=== PATIENT | female | born 1980 | race Caucasian/White ===

== ENCOUNTER 2016-11-16 04:09 | Emergency (ER) | payer SELFPAY ==
[2016-11-16 04:19] VITALS: BP 121/89; BMI 47.1
--- NOTE | 2016-11-16 04:28 | DR.GENAD ---
HPI - PCP Primary Care Physician: ENZO HOLT SECURITY AND [employer]IVACY CONSULTANT - Complaint/Symptoms Chief Complaint Doctors Comments: Patient admits to body aches, headache, nausea for one day. Chief Complaint:: SORE THOAT, SOB, BODY ACHES Self Treatment fo Chief Complaint: TYLENOL; ALEVE - Source History Provided: Patient - Mode of Arrival Mode of Arrival: Ambulatory - Timing Onset of Chief Complaint: 11/12/16 PMH - PMH Past Medical History: Yes Past Medical History: Anxiety, Depression, Diabetes Past Surgical History: Yes Surgical History: - Family History History of Family Medical Conditions: No Family Medical History: Diabetes Mellitus, Cancer, Hypertension - Social History Does patient currently use any type of tobacco product: No Have you used tobacco products in the last 12 months: No Type of Tobacco Use: None Alcohol Use: None Do you use any recreational Drugs:: No Lives With: Alone Lives Where: Home - infectious screening In the last 2 months have you had wt loss of >10#?: NO Have you had fever, night sweats or hemotysis?: No Have you traveled outside the country in the last 6 months?: No Isolation: Standard ROS - Review of Systems Eyes: No Symptoms Reported ENTM: No Symptoms Reported Respiratoy: No Symptoms Reported Cardiovascular: No Symptoms Reported Gastrointestinal/Abdominal: No Symptoms Reported Genitourinary: No Symptoms Reported Neurological: Headache Musculoskeletal: Other (myalgia) Integumentary: No Symptoms Reported Hematologic/Lymphatic: No Symptoms Reported Endocrine: No Symptoms Reported Psychiatric: No Symptoms Reported All Other Systems: Reviewed and Negative PE - Vital Signs Vitals: Temperature 98.6 F Pulse Rate 123 Respiratory Rate 24 Blood Pressure 121/89 O2 Sat by Pulse Oximetry 96 - General Limitations: No Limitations General Appearance: Alert, In No Apparent Distress - Head Head Exam: Normal Inspection, Atraumatic - Eyes Eye exam: Normal Appearance, PERRL, EOMI - ENT ENT Exam: Normal Exam External Ear Exam: Normal External Inspection TM/Canal Exam: Bilateral Normal Nose Exam: Normal Nose Exam Mouth Exam: Normal Inspection Throat Exam: Normal Inspection - Neck Neck Exam: Normal Inspection - Chest Chest Inspection: Normal Inspection - Respiratory Respiratory Exam: Normal Lung Sounds Bilat Respiratory Exam: Bilateral Clear to Auscultation - Cardiovascular Cardiovascular Exam: Regular Rate, Normal Rhythm - Abdominal Exam Abdominal Exam: Normal Inspection, Normal Bowel Sounds Abdominal Tenderness: negative: RUQ, RLQ, LUQ, LLQ, Epigastrium, Suprapubic, Diffuse, Mild, Moderate, Severe, Other - Extremities Extremities Exam: Normal Inspection - Back Back Exam: Normal Inspection, Full ROM - Neurologic Neurological Exam: Alert, Oriented X3, CN II-XII Intact - Psychiatric Psychiatric Exam: Normal Affect, Normal Mood - Skin Skin Exam: Warm, Dry, Intact Course - Treatment Treatment: Bicillin,Toradol, NS - Reevaluation 1st: Improved ROR - Labs Reviewed Result Diagrams: 11/16/16 05:15 11/16/16 05:15 Laboratory: WBC 19.5 X10^3/uL (3.6-10.0) H 11/16/16 05:15 RBC 5.22 X10^6/uL (3.5-5.4) 11/16/16 05:15 Hgb 15.5 g/dL (12.0-16.0) 11/16/16 05:15 Hct 45.3 % (36.0-47.0) 11/16/16 05:15 MCV 86.8 fL (80.0-100.0) 11/16/16 05:15 MCH 29.8 pg (27.0-34.0) 11/16/16 05:15 MCHC 34.3 g/dL (33.0-35.0) 11/16/16 05:15 RDW 12.8 % (11.6-16.5) 11/16/16 05:15 Plt Count 393 X10^3/uL (150.0-450.0) 11/16/16 05:15 MPV 7.1 fL (7.4-11.0) L 11/16/16 05:15 Neut % 86.0 % (42.0-75.0) H 11/16/16 05:15 Lymph % 7.0 % (21.0-51.0) L 11/16/16 05:15 [place] % 4.8 % (0.0-13.0) 11/16/16 05:15 Eos % 1.5 % (0.9-2.9) 11/16/16 05:15 Baso % 0.7 % (0.2-1.0) 11/16/16 05:15 Neut # 16.8 x10^3/uL (2.2-4.8) H 11/16/16 05:15 Lymph # 1.4 X10^3/uL (1.3-2.9) 11/16/16 05:15 [place] # 0.9 x10^3/uL (0.3-0.8) H 11/16/16 05:15 Eos # 0.3 x10^3/uL (0.0-0.2) H 11/16/16 05:15 Baso # 0.1 X10^3/uL (0.0-0.1) 11/16/16 05:15 Absolute Nucleated RBC 0.0 /100WBC 11/16/16 05:15 Sodium 132 mmol/L (136-145) L 11/16/16 05:15 Corrected Sodium 137 mmol/L (136-145) 11/16/16 05:15 Potassium 4.2 mmol/L (3.5-5.1) 11/16/16 05:15 Chloride 97 mmol/L (98-107) L 11/16/16 05:15 Carbon Dioxide 26.3 mmol/L (21-32) 11/16/16 05:15 BUN 12 mg/dL (7-18) 11/16/16 05:15 Creatinine 1.04 mg/dL (0.55-1.02) H 11/16/16 05:15 Est GFR (MDRD) Af Amer > 60 (>60) 11/16/16 05:15 Est GFR (MDRD) Non-Af > 60 (>60) 11/16/16 05:15 Glucose 321 mg/dL (65-99) H 11/16/16 05:15 Calcium 9.2 mg/dL (8.5-10.1) 11/16/16 05:15 Influenza Type A (PCR) Negative (NEGATIVE) 11/16/16 04:26 Influenza Type B (PCR) Negative (NEGATIVE) 11/16/16 04:26 Streptococcus Screen Positive (NEGATIVE) A 11/16/16 04:26 - Diagnosis Discharge Problem: Strep pharyngitis, Upper respiratory disease Diabetes mellitus Qualifiers: Diabetes mellitus type: type 1 Diabetes mellitus complication status: without complication Qualified Code(s): E10.9 - Type 1 diabetes mellitus without complications - Discharge Plan Condition: Stable - Follow ups/Referrals Follow ups/Referrals: ENZO HOLT [Primary Care Provider] - 3 days - Instructions
[2016-11-16] MEDS ORDERED: NS 1000 ML 1,000 ML IV ONE (04:56)
[2016-11-16] MEDS ORDERED: NS 1000 ML 1,000 ML ONE (04:57)
[2016-11-16] MEDS ORDERED: BICILLIN L-A IM ONE ×2 (04:58→05:10)
[2016-11-16 05:26] LABS: BASOPHILS # (AUTO) 0.1 X10^3/uL (0.0-0.1); BASOPHILS % (AUTO) 0.7 % (0.2-1.0); EOSINOPHILS # (AUTO) 0.3 x10^3/uL (0.0-0.2); EOSINOPHILS % (AUTO) 1.5 % (0.9-2.9); HEMATOCRIT 45.3 % (36.0-47.0); HEMOGLOBIN 15.5 g/dL (12.0-16.0); LYMPHOCYTES # (AUTO) 1.4 X10^3/uL (1.3-2.9); MEAN CORPUSCULAR HEMOGLOBIN 29.8 pg (27.0-34.0); MEAN CORPUSCULAR HGB CONC 34.3 g/dL (33.0-35.0); MEAN CORPUSCULAR VOLUME 86.8 fL (80.0-100.0); MEAN PLATELET VOLUME 7.1 fL (7.4-11.0); MONOCYTES # (AUTO) 0.9 x10^3/uL (0.3-0.8); MONOCYTES % (AUTO) 4.8 % (0.0-13.0); NEUTROPHILS # (AUTO) 16.8 x10^3/uL (2.2-4.8); PLATELET COUNT 393 X10^3/uL (150.0-450.0); RED BLOOD COUNT 5.22 X10^6/uL (3.5-5.4); RED CELL DISTRIBUTION WIDTH 12.8 % (11.6-16.5); WHITE BLOOD COUNT 19.5 X10^3/uL (3.6-10.0)
[2016-11-16 05:31] LABS: BLOOD UREA NITROGEN 12 mg/dL (7-18); CALCIUM 9.2 mg/dL (8.5-10.1); CARBON DIOXIDE 26.3 mmol/L (21-32); CHLORIDE 97 mmol/L (98-107); COR NA(FOR HYPERGLY) 137 mmol/L (136-145); CREATININE 1.04 mg/dL (0.55-1.02); SODIUM 132 mmol/L (136-145); eGFR BLACK RACES > 60 (>60); eGFR NON BLACK RACES > 60 (>60)
[2016-11-16] MEDS ORDERED: TORADOL 30 MG VIAL IVP ONE (06:01)
[2016-11-16] MEDS ORDERED: TORADOL 30 MG VIAL ONE (06:03)
== END 2016-11-16 06:25 | disposition home or self-care (01) ==
LOC: ER 04:09
DX: J02.0 Streptococcal pharyngitis (principal); J06.9 Acute upper respiratory infection, unspecified; E10.9 Type 1 diabetes mellitus without complications
CPT/HCPCS: 36415; 80048; 85025; 87502; 87880; 96365; 96372; 96374; 99283; A4222; J0570; J1885

== ENCOUNTER 2016-12-31 21:48 | Emergency (ER) | payer SELFPAY ==
[2016-12-31 22:03] VITALS: BMI 44.3
[2016-12-31] MEDS ORDERED: NORFLEX INJ IM ONE (22:58)
[2016-12-31] MEDS ORDERED: TORADOL 60 MG VIAL IM ONE (22:58)
--- NOTE | 2016-12-31 22:58 | DR.GENAD ---
HPI - PCP Primary Care Physician: Raquel Holt - HPI Comment HPI Comment: GETTING WORSE. NO INJURY. - Complaint/Symptoms Chief Complaint Doctors Comments: LLOWER BACK PAIN TIMES 3 DAYS. N/N/D TODAY. Chief Complaint:: LOWER BACK PAIN FOR 3 DAYS AND N/V/D SINCE THIS AM. SYMTOMS GETTING WORSE. DENIES FEVER.DENIES DYSURIA. Self Treatment fo Chief Complaint: Flexeril @ 19:00, Tylenol @ 13:00, Aleve on 12/30/16 - Nurses notes reviewed Nurses Notes Review: Yes - Source History Provided: Patient - Mode of Arrival Mode of Arrival: Ambulatory - Timing Onset of Chief Complaint: 12/31/16 Came on: Suddenly - Duration Duration: Constant Duration: Days - Severity Severity: Moderate PMH - PMH Past Medical History: Yes Past Medical History: Anxiety, Depression, Diabetes Past Surgical History: Yes Surgical History: - Family History History of Family Medical Conditions: Yes Family Medical History: Diabetes Mellitus, Cancer, Hypertension - Social History Does patient currently use any type of tobacco product: No Have you used tobacco products in the last 12 months: No Alcohol Use: None Do you use any recreational Drugs:: No Lives With: Family Lives Where: Home - infectious screening Have you traveled outside the country in the last 6 months?: No ROS - Review of Systems Constitutional: Weakness, Fatigue Eyes: No Symptoms Reported. negative: Eye Pain, Discharge ENTM: No Symptoms Reported. negative: Ear Pain, Nose Discharge, Nose Congestion , Throat Pain Respiratoy: No Symptoms Reported. negative: Productive Cough, Non-Productive Cough, Short of Breath, Wheezing, Hemoptysis Cardiovascular: negative: Chest Pain, Edema, Palpitations Gastrointestinal/Abdominal: Abdominal Pain, Diarrhea, Nausea, Vomiting Genitourinary: No Symptoms Reported. negative: Dysuria, Frequency, Hematuria Neurological: Weakness. negative: Headache, Dizziness Musculoskeletal: Back Pain, Back Integumentary: No Symptoms Reported Hematologic/Lymphatic: No Symptoms Reported Endocrine: No Symptoms Reported. negative: Flushing, Increased Thirst, Increased Urine All Other Systems: Reviewed and Negative PE - Vital Signs Vitals: Temperature 97.4 F Pulse Rate [Right Radial] 104 Pulse Rate 130 Respiratory Rate 18 Blood Pressure [Left Arm] 126/67 Blood Pressure 125/81 O2 Sat by Pulse Oximetry 98 - General Limitations: No Limitations General Appearance: Alert - Head Head Exam: Normal Inspection - Eyes Eye exam: Normal Appearance - ENT ENT Exam: Normal External Ear Exam External Ear Exam: Normal External Inspection TM/Canal Exam: Bilateral Normal Nose Exam: Normal Nose Exam Mouth Exam: Normal Inspection Throat Exam: Normal Inspection - Neck Neck Exam: Trachea Midline. negative: Tenderness, Meningismus, Lymphadenopathy - Chest Chest Inspection: Symmetric Chest Wall Rise - Respiratory Respiratory Exam: Normal Lung Sounds Bilat Respiratory Exam: Bilateral Clear to Auscultation - Cardiovascular Cardiovascular Exam: Regular Rate, Normal Rhythm, Normal Heart Sounds - Abdominal Exam Abdominal Exam: Normal Bowel Sounds, Soft, Tenderness Abdominal Tenderness: Diffuse, Moderate - Extremities Extremities Exam: Normal Inspection - Back Back Exam: Paraspinal Tenderness (LOWER BACL.), Vertebral Tenderness (LOWER BACK.) - Neurologic Neurological Exam: Alert, Oriented X3, CN II-XII Intact, Normal Gait, Reflexes Normal. negative: Motor Sensory Deficit - Psychiatric Psychiatric Exam: Normal Affect, Normal Mood - Skin Skin Exam: Normal Color MDM - Additional Information Additional Information Obtained From: Family - Differential Diagnosis Differential Diagnosis: LOWER BACK PAIN, ABDOMINAL PAIN, UTI, KIDNEY STONE Course - Treatment Treatment: SEE ORDERS. IM MEDS FOR PAIN IN ED. PAIN IMPROVED. REGULAR INSULIN IN ED. GLUCOSE DECREASING. - Reevaluation 1st: Improved - Education/Counseling Education/Counseling: Patient, Family, Education Educated On: Treatment, Diagnosis, Needs for Follow Up ROR - Labs Reviewed Laboratory Results Reviewed?: Yes Result Diagrams: 12/31/16 23:08 12/31/16 23:08 Laboratory: WBC 13.6 X10^3/uL (3.6-10.0) H 12/31/16 23:08 RBC 5.26 X10^6/uL (3.5-5.4) 12/31/16 23:08 Hgb 15.8 g/dL (12.0-16.0) 12/31/16 23:08 Hct 46.3 % (36.0-47.0) 12/31/16 23:08 MCV 88.1 fL (80.0-100.0) 12/31/16 23:08 MCH 30.1 pg (27.0-34.0) 12/31/16 23:08 MCHC 34.2 g/dL (33.0-35.0) 12/31/16 23:08 RDW 13.1 % (11.6-16.5) 12/31/16 23:08 Plt Count 408 X10^3/uL (150.0-450.0) 12/31/16 23:08 MPV 7.0 fL (7.4-11.0) L 12/31/16 23:08 Neut % 74.6 % (42.0-75.0) 12/31/16 23:08 Lymph % 17.6 % (21.0-51.0) L 12/31/16 23:08 [place] % 4.0 % (0.0-13.0) 12/31/16 23:08 Eos % 3.3 % (0.9-2.9) H 12/31/16 23:08 Baso % 0.5 % (0.2-1.0) 12/31/16 23:08 Neut # 10.1 x10^3/uL (2.2-4.8) H 12/31/16 23:08 Lymph # 2.4 X10^3/uL (1.3-2.9) 12/31/16 23:08 [place] # 0.5 x10^3/uL (0.3-0.8) 12/31/16 23:08 Eos # 0.5 x10^3/uL (0.0-0.2) H 12/31/16 23:08 Baso # 0.1 X10^3/uL (0.0-0.1) 12/31/16 23:08 Absolute Nucleated RBC 0.0 /100WBC 12/31/16 23:08 Sodium 131 mmol/L (136-145) L 12/31/16 23:08 Corrected Sodium 139 mmol/L (136-145) 12/31/16 23:08 Potassium 3.8 mmol/L (3.5-5.1) 12/31/16 23:08 Chloride 96 mmol/L (98-107) L 12/31/16 23:08 Carbon Dioxide 22.2 mmol/L (21-32) 12/31/16 23:08 BUN 18 mg/dL (7-18) 12/31/16 23:08 Creatinine 1.15 mg/dL (0.55-1.02) H 12/31/16 23:08 Est GFR (MDRD) Af Amer > 60 (>60) 12/31/16 23:08 Est GFR (MDRD) Non-Af 57 (>60) L 12/31/16 23:08 Glucose 415 mg/dL (65-99) H 12/31/16 23:08 POC Glucose (mg/dL) 321 mg/dL (65-99) H 01/01/17 02:26 Calcium 8.9 mg/dL (8.5-10.1) 12/31/16 23:08 Corrected Calcium TNP 12/31/16 23:08 Total Bilirubin 0.70 mg/dL (0.2-1.0) 12/31/16 23:08 AST 32 Units/L (15-37) 12/31/16 23:08 ALT 19 Units/L (12-78) 12/31/16 23:08 Alkaline Phosphatase 129 Units/L (46-116) H 12/31/16 23:08 Total Protein 7.8 g/dL (6.4-8.2) 12/31/16 23:08 Albumin 3.4 g/dL (3.4-5.0) 12/31/16 23:08 Globulin 4.4 g/dL (2.5-4.5) 12/31/16 23:08 Albumin/Globulin Ratio 0.8 Ratio (1.1-2.1) L 12/31/16 23:08 Specimen Type Clean catch urine 12/31/16 23:29 Urine Color Yellow (YELLOW) 12/31/16: Urine Appearance Clear (CLEAR) 12/31/16 23: Urine pH 5.0 (5.0 - 8.0) 12/31/16: Ur Specific [place] 1.015 (1.000-1.030) 12/31/16 23: Urine Protein Negative (NEGATIVE) 12/31/16: Urine Glucose (UA) 4+ (NEGATIVE) 12/31/16: Urine Ketones Negative (NEGATIVE) 12/31/16: Urine Occult Blood 1+ (NEGATIVE) 12/31/16 23: Urine Nitrite Negative (NEGATIVE) 12/31/16 23: Urine Bilirubin Negative (NEGATIVE) 12/31/16: Urine Urobilinogen Normal (NORMAL) 12/31/16: Ur Leukocyte Esterase Negative (NEGATIVE) 11/20/17 23:29 Urine RBC None seen /HPF (NEGATIVE) 12/31/16 23:29 Urine WBC None seen /HPF (NEGATIVE) 12/31/16 23:29 Ur Squamous Epith Cells Rare /HPF (NEGATIVE) 12/31/16 23:29 Urine Bacteria Negative /HPF (NEGATIVE) 12/31/16 23:29 Ur Culture Indicated? No/not indicated 12/31/16 23:29 Acetone, Semi-Quant Negative (NEGATIVE) 01/01/17 23:08 - XRAY XRAY Interpreted by: Radiologist XRAY Findings: REPORT DISCUSS WITH PATIENT AND FAMILY. - Diagnosis Discharge Problem: Hyperglycemia Arm pain, musculoskeletal Qualifiers: Laterality: unspecified laterality Qualified Code(s): M79.603 - Pain in arm, unspecified Abdominal pain Qualifiers: Abdominal location: generalized Qualified Code(s): R10.84 - Generalized abdominal pain - Discharge Plan Disposition: 01 HOME, SELF-CARE Condition: Stable Prescriptions: Cyclobenzaprine HCl [FLEXERIL 10 MG *] 10 mg PO TID PRN #20 tab PRN Reason: Ibuprofen [MOTRIN TAB 600 MG *] 600 mg PO TID PRN #20 tab PRN Reason: Pain/Inflammation - Follow ups/Referrals Follow ups/Referrals: RAQUEL HOLT [Primary Care Provider] - 3 days - Instructions Instructions: Hyperglycemia, [id number], Abdominal Pain, Adult, [id number] , Back Pain, Adult, [id number] Additional Instructions: RETURN TO ED IF WORSE.
[2016-12-31] MEDS ORDERED: NORFLEX INJ ONE (23:06)
[2016-12-31] MEDS ORDERED: TORADOL 60 MG VIAL ONE (23:06)
[2016-12-31 23:17] LABS: BASOPHILS # (AUTO) 0.1 X10^3/uL (0.0-0.1); BASOPHILS % (AUTO) 0.5 % (0.2-1.0); EOSINOPHILS # (AUTO) 0.5 x10^3/uL (0.0-0.2); EOSINOPHILS % (AUTO) 3.3 % (0.9-2.9); HEMATOCRIT 46.3 % (36.0-47.0); HEMOGLOBIN 15.8 g/dL (12.0-16.0); LYMPHOCYTES # (AUTO) 2.4 X10^3/uL (1.3-2.9); LYMPHOCYTES % (AUTO) 17.6 % (21.0-51.0); MEAN CORPUSCULAR HEMOGLOBIN 30.1 pg (27.0-34.0); MEAN CORPUSCULAR HGB CONC 34.2 g/dL (33.0-35.0); MEAN CORPUSCULAR VOLUME 88.1 fL (80.0-100.0); MONOCYTES # (AUTO) 0.5 x10^3/uL (0.3-0.8); NEUTROPHILS # (AUTO) 10.1 x10^3/uL (2.2-4.8); NEUTROPHILS % (AUTO) 74.6 % (42.0-75.0); PLATELET COUNT 408 X10^3/uL (150.0-450.0); RED BLOOD COUNT 5.26 X10^6/uL (3.5-5.4); RED CELL DISTRIBUTION WIDTH 13.1 % (11.6-16.5); WHITE BLOOD COUNT 13.6 X10^3/uL (3.6-10.0)
[2016-12-31 23:29] LABS: ALANINE AMINOTRANSFERASE 19 Units/L (12-78); ALBUMIN 3.4 g/dL (3.4-5.0); BLOOD UREA NITROGEN 18 mg/dL (7-18); CALCIUM 8.9 mg/dL (8.5-10.1); CARBON DIOXIDE 22.2 mmol/L (21-32); CHLORIDE 96 mmol/L (98-107); COR NA(FOR HYPERGLY) 139 mmol/L (136-145); CREATININE 1.15 mg/dL (0.55-1.02); SODIUM 131 mmol/L (136-145); eGFR BLACK RACES > 60 (>60); eGFR NON BLACK RACES 57 (>60)
[2016-12-31 23:34] LABS: BILIRUBIN,URINE NEGATIVE (NEGATIVE); BLOOD/HEMOGLOBIN,URINE 1+ (NEGATIVE); GLUCOSE, URINE 4+ (NEGATIVE); KETONES,URINE NEGATIVE (NEGATIVE); LEUKOCYTE ESTERASE ,URINE NEGATIVE (NEGATIVE); NITRITES,URINE NEGATIVE (NEGATIVE); PROTEIN,URINE NEGATIVE (NEGATIVE); UROBILINOGEN,URINE NORMAL (NORMAL)
[2016-12-31 23:39] LABS: ALKALINE PHOSPHATASE 129 Units/L (46-116); ASPARTATE AMINO TRANSFERASE 32 Units/L (15-37); TOTAL PROTEIN 7.8 g/dL (6.4-8.2)
[2016-12-31 23:40] LABS: APPEARANCE,URINE CLEAR (CLEAR); COLOR,URINE YELLOW (YELLOW)
[2016-12-31 23:42] LABS: BACTERIA,URINE NEGATIVE /HPF (NEGATIVE); RBC,URINE NONE SEEN /HPF (NEGATIVE); SQUAMOUS EPITHELIAL CELL,UR RARE /HPF (NEGATIVE)
--- NOTE | 2017-01-01 01:19 | RAD ---
Lumbar spine, three views Indication: Lower back pain after bending over, no trauma Comparison: None Findings: No acute fracture or malalignment is identified. There is minimal degenerative disc disease of the visualized lower thoracic spine. Very mild degenerative disc disease and facet arthropathy of the lumbar spine is also noted, most significant at L5-S1. SI joints are unremarkable. Impression: Minimal degenerative changes, as above. Reported By:
[2017-01-01] MEDS ORDERED: HumuLIN R SUBCUT ONE (01:29)
[2017-01-01] MEDS ORDERED: DEMEROL INJ IM ONE (01:32)
[2017-01-01] MEDS ORDERED: ZOFRAN INJ 4 MG VIAL IVP ONE (01:34)
[2017-01-01] MEDS ORDERED: ZOFRAN INJ 4 MG VIAL ONE (01:36)
[2017-01-01] MEDS ORDERED: DEMEROL INJ ONE (01:36)
[2017-01-01] MEDS ORDERED: HumuLIN R ONE (01:37)
[2017-01-01 02:45] VITALS: BP 126/67
[2017-01-01] MEDS ORDERED: SNACK - Diabetic Appropriate PO SCH (20:00)
== END 2017-01-01 02:41 | disposition home or self-care (01) ==
LOC: ER 22:06
DX: R73.9 Hyperglycemia, unspecified (principal); M79.603 Pain in arm, unspecified; R10.84 Generalized abdominal pain
CPT/HCPCS: 36415; 72100; 80053; 81001; 82009; 85025; 96372; 99283; 99284; J1815; J1885; J2175; J2360; J2405

== ENCOUNTER 2017-03-07 22:52 | Emergency (ER) | payer SELFPAY ==
[2017-03-07 22:58] VITALS: BMI 44.3
[2017-03-07] MEDS ORDERED: TORADOL 60 MG VIAL IM ONE (23:42)
[2017-03-07] MEDS ORDERED: TORADOL 60 MG VIAL ONE (23:44)
--- NOTE | 2017-03-07 23:55 | DR.GENAD ---
HPI - HPI Comment HPI Comment: WORSE TONIGHT. - Complaint/Symptoms Chief Complaint Doctors Comments: FEVER, CHILLS, BODYACHES AND COUGH AND CONGESTION TIMES 3 DAYS Chief Complaint:: PT C/O COUGH, CONGESTION, CHILLS, BODYACHES - Nurses notes reviewed Nurses Notes Review: Yes - Source History Provided: Patient - Mode of Arrival Mode of Arrival: Ambulatory - Timing Onset of Chief Complaint: 03/05/17 Came on: Suddenly - Duration Duration: Constant Duration: Days - Severity Severity: Moderate PMH - PMH Past Medical History: Yes Past Medical History: Anxiety, Depression, Diabetes, Migraines Past Surgical History: Yes Surgical History: - Family History History of Family Medical Conditions: Yes Family Medical History: Diabetes Mellitus, Cancer, Hypertension - Social History Do you use any recreational Drugs:: No - infectious screening Have you traveled outside the country in the last 6 months?: No Isolation: Standard ROS - Review of Systems Eyes: No Symptoms Reported ENTM: Nose Discharge, Nose Congestion, Throat Pain. negative: Ear Pain Respiratoy: Productive Cough. negative: Short of Breath, Wheezing, Hemoptysis Cardiovascular: No Symptoms Reported Gastrointestinal/Abdominal: No Symptoms Reported Genitourinary: No Symptoms Reported Neurological: Headache, Weakness, Dizziness Musculoskeletal: Back Pain Integumentary: Dryness Hematologic/Lymphatic: No Symptoms Reported Endocrine: No Symptoms Reported All Other Systems: Reviewed and Negative PE - Vital Signs Vitals: Temperature 98 F Pulse Rate [Left Radial] 99 Pulse Rate 106 Respiratory Rate 18 Blood Pressure [Left Arm] 138/76 Blood Pressure 145/80 O2 Sat by Pulse Oximetry 100 - General Limitations: No Limitations General Appearance: Alert - Head Head Exam: Normal Inspection - Eyes Eye exam: Normal Appearance - ENT ENT Exam: Normal External Ear Exam External Ear Exam: Normal External Inspection TM/Canal Exam: Bilateral Normal Nose Exam: Normal Nose Exam Mouth Exam: Normal Inspection Throat Exam: Tonsillar Erythema, Tonsillomegaly. negative: Tonsillar Exudate - Neck Neck Exam: Trachea Midline - Chest Chest Inspection: Symmetric Chest Wall Rise - Respiratory Respiratory Exam: Normal Lung Sounds Bilat Respiratory Exam: Bilateral Clear to Auscultation - Cardiovascular Cardiovascular Exam: Regular Rate, Normal Rhythm, Normal Heart Sounds - Abdominal Exam Abdominal Exam: Normal Bowel Sounds, Soft. negative: Tenderness - Extremities Extremities Exam: Normal Inspection - Back Back Exam: Normal Inspection - Neurologic Neurological Exam: Alert, Oriented X3 - Psychiatric Psychiatric Exam: Normal Affect, Normal Mood - Skin Skin Exam: Normal Color MDM - Differential Diagnosis Differential Diagnosis: FLU, SINUSITIS, BRONCHITIS Course - Treatment Treatment: SEE ORDERS - Education/Counseling Education/Counseling: Patient, Family, Education Educated On: Treatment, Diagnosis, Needs for Follow Up ROR - Labs Reviewed Laboratory Results Reviewed?: Yes Laboratory: Influenza Type A (PCR) Negative (NEGATIVE) 03/07/17 23:27 Influenza Type B (PCR) Negative (NEGATIVE) 03/07/17 23:27 Streptococcus Screen Positive (NEGATIVE) A 03/07/17 23:27 - Diagnosis Discharge Problem: Strep throat Fever Qualifiers: Fever type: unspecified Qualified Code(s): R50.9 - Fever, unspecified - Discharge Plan Disposition: HOME, SELF-CARE Condition: Stable Prescriptions: Amoxicillin [Amoxil 875 mg] 875 mg PO Q12H #20 tab Ibuprofen [MOTRIN TAB 800 MG *] 800 mg PO Q8H PRN #30 tab PRN Reason: Pain/Inflammation - Follow ups/Referrals Follow ups/Referrals: ENZO HOLT [Primary Care Provider] - 3 days - Instructions Instructions: Strep Throat, [id number] Additional Instructions: RETURN TO ED IF WORSE.
[2017-03-08] MEDS ORDERED: AMOXIL CAP 500 MG PO ONE ×2 (00:15→00:16)
[2017-03-08 00:21] VITALS: BP 138/76
== END 2017-03-08 00:20 | disposition home or self-care (01) ==
LOC: ER 23:02
DX: J02.0 Streptococcal pharyngitis (principal); R50.9 Fever, unspecified
CPT/HCPCS: 87502; 87880; 96372; 99282; J1885

== ENCOUNTER 2017-03-09 18:55 | Emergency (ER) | payer SELFPAY ==
[2017-03-09 19:03] VITALS: BP 130/74; BMI 44.3
--- NOTE | 2017-03-09 20:23 | DR.GENAD ---
HPI - PCP Primary Care Physician: YANET - Complaint/Symptoms Chief Complaint:: PT WAS HERE SATURDAY NIGHT AND + STREP AND (-) FLU; PT'S SYMPTOMS IS GETTING WORSE; NOW EXPERIENCING CHEST TIGHTNESS; PT'S DAUGHTER IS (+ ) FLU AND IN HOSPITAL; COUGHING AND SNEEZING IS WORSE Self Treatment fo Chief Complaint: AMOXICILLAN; 800MG IBUPROFEN - Nurses notes reviewed Nurses Notes Review: Yes - Source History Provided: Patient - Mode of Arrival Mode of Arrival: Ambulatory - Timing Onset of Chief Complaint: 03/09/17 PMH - PMH Past Medical History: Yes Past Medical History: Diabetes Past Surgical History: Yes Surgical History: Past Surgical History Comment: TUMORS REMOVED FROM OVARIES - Family History History of Family Medical Conditions: No Family Medical History: Diabetes Mellitus, Cancer, Hypertension - Social History Alcohol Use: None Do you use any recreational Drugs:: No Lives With: Spouse Lives Where: Home - infectious screening In the last 2 months have you had wt loss of >10#?: NO Have you had fever, night sweats or hemotysis?: No Have you traveled outside the country in the last 6 months?: No Isolation: Standard ROS - Review of Systems Constitutional: No Symptoms Reported PE - Vital Signs Vitals: Temperature 97.9 F Pulse Rate 84 Respiratory Rate 22 Blood Pressure [Left Arm] 138/76 Blood Pressure 130/74 O2 Sat by Pulse Oximetry 97 ROR - Labs Reviewed Laboratory Results Reviewed?: Yes Result Diagrams: 03/09/17 20:35 03/09/17 20:35 Laboratory: WBC 6.9 X10^3/uL (3.6-10.0) 03/09/17 20:35 RBC 4.90 X10^6/uL (3.5-5.4) 03/09/17 20:35 Hgb 14.4 g/dL (12.0-16.0) 03/09/17 20:35 Hct 41.6 % (36.0-47.0) 03/09/17 20:35 MCV 84.9 fL (80.0-100.0) 03/09/17 20:35 MCH 29.4 pg (27.0-34.0) 03/09/17 20:35 MCHC 34.7 g/dL (33.0-35.0) 03/09/17 20:35 RDW 12.7 % (11.6-16.5) 03/09/17 20:35 Plt Count 372 X10^3/uL (150.0-450.0) 03/09/17 20:35 MPV 7.0 fL (7.4-11.0) L 03/09/17 20:35 Neut % 65.4 % (42.0-75.0) 03/09/17 20:35 Lymph % 19.5 % (21.0-51.0) L 03/09/17 20:35 [place] % 9.0 % (0.0-13.0) 03/09/17 20:35 Eos % 5.0 % (0.9-2.9) H 03/09/17 20:35 Baso % 1.1 % (0.2-1.0) H 03/09/17 20:35 Neut # 4.5 x10^3/uL (2.2-4.8) 03/09/17 20:35 Lymph # 1.3 X10^3/uL (1.3-2.9) 03/09/17 20:35 [place] # 0.6 x10^3/uL (0.3-0.8) 03/09/17 20:35 Eos # 0.3 x10^3/uL (0.0-0.2) H 03/09/17 20:35 Baso # 0.1 X10^3/uL (0.0-0.1) 03/09/17 20:35 Absolute Nucleated RBC 0.0 /100WBC 03/09/17 20:35 Sample Site Lr 03/09/17 21:10 ABG pH 7.440 (7.35-7.45) 03/09/17 21:10 ABG pCO2 31.0 mmHg (35.0-45.0) L 03/09/17 21:10 ABG pO2 91.0 mmHg (80.0-100.0) 03/09/17 21:10 ABG HCO3 21.1 mmol/L (22-26) L 03/09/17 21:10 ABG O2 Saturation 97.0 % (90-100) 03/09/17 21:10 ABG Base Excess -2.2 mmol/L (-2.0-2.0) L 03/09/17 21:10 Earle Test Pos 03/09/17 21:10 A-a Gradient 20.0 mmHg 03/09/17 21:10 FiO2 21 03/09/17 21:10 Blood Gas Comments Yanely well ae 03/09/17 21:10 Sodium 134 mmol/L (136-145) L 03/09/17 20:35 Corrected Sodium 138 mmol/L (136-145) 03/09/17 20:35 Potassium 3.7 mmol/L (3.5-5.1) 03/09/17 20:35 Chloride 100 mmol/L (98-107) 03/09/17 20:35 Carbon Dioxide 23.4 mmol/L (21-32) 03/09/17 20:35 BUN 12 mg/dL (7-18) 03/09/17 20:35 Creatinine 0.89 mg/dL (0.55-1.02) 03/09/17 20:35 Est GFR (MDRD) Af Amer > 60 (>60) 03/09/17 20:35 Est GFR (MDRD) Non-Af > 60 (>60) 03/09/17 20:35 Glucose 252 mg/dL (65-99) H 03/09/17 20:35 Calcium 8.9 mg/dL (8.5-10.1) 03/09/17 20:35 Corrected Calcium 9.5 mg/dL (8.5-10.1) 03/09/17 20:35 Total Bilirubin 0.30 mg/dL (0.2-1.0) 03/09/17 20:35 AST 120 Units/L (15-37) H 03/09/17 20:35 ALT 36 Units/L (12-78) 03/09/17 20:35 Alkaline Phosphatase 97 Units/L (46-116) 03/09/17 20:35 Total Protein 7.4 g/dL (6.4-8.2) 03/09/17 20:35 Albumin 3.2 g/dL (3.4-5.0) L 03/09/17 20:35 Globulin 4.2 g/dL (2.5-4.5) 03/09/17 20:35 Albumin/Globulin Ratio 0.8 Ratio (1.1-2.1) L 03/09/17 20:35 Specimen Type Clean catch urine 03/09/17 20:37 Urine Color Yellow (YELLOW) 03/09/17 20:37 Urine Appearance Clear (CLEAR) 03/09/17 20:37 Urine pH 5.0 (5.0 - 8.0) 03/09/17 20:37 Ur Specific [place] 1.025 (1.000-1.030) 03/09/17 20:37 Urine Protein 2+ (NEGATIVE) 03/09/17 20:37 Urine Glucose (UA) 4+ (NEGATIVE) 03/09/17 20:37 Urine Ketones 1+ (NEGATIVE) 03/09/17 20:37 Urine Occult Blood 1+ (NEGATIVE) 03/09/17 20:37 Urine Nitrite Negative (NEGATIVE) 03/09/17 20:37 Urine Bilirubin Negative (NEGATIVE) 03/09/17 20:37 Urine Urobilinogen Normal (NORMAL) 03/09/17 20:37 Ur Leukocyte Esterase Negative (NEGATIVE) 03/09/17 20:37 Urine RBC Rare /HPF (NEGATIVE) 03/09/17 20:37 Urine WBC Rare /HPF (NEGATIVE) 03/09/17 20:37 Ur Squamous Epith Cells Few /HPF (NEGATIVE) 03/09/17 20:37 Amorphous Sediment Trace /HPF (NEGATIVE) 03/09/17 20:37 Urine Bacteria Trace /HPF (NEGATIVE) 03/09/17 20:37 Ur Culture Indicated? No/not indicated 03/09/17 20:37 Influenza Type A (PCR) Positive (NEGATIVE) A 03/09/17 20:19 Influenza Type B (PCR) Negative (NEGATIVE) 03/09/17 20:19 - Diagnosis Discharge Problem: Influenza - Discharge Plan Condition: Stable Prescriptions: Acetaminophen with Codeine [Tylenol/Codeine #3 300-30 mg] 1 tab PO Q6H PRN #15 tab PRN Reason: Pain Oseltamivir Phosphate [Tamiflu] 75 mg PO BID #10 cap - Follow ups/Referrals Follow ups/Referrals: ENZO HOLT [Primary Care Provider] - 3 days - Instructions Instructions: Influenza, Adult, [id number], Strep Throat, [id number] Additional Instructions: RETURN TO ED IF WORSE. CONTINUE WITH AMOXICILLIN
[2017-03-09 20:50] LABS: BASOPHILS # (AUTO) 0.1 X10^3/uL (0.0-0.1); BASOPHILS % (AUTO) 1.1 % (0.2-1.0); EOSINOPHILS # (AUTO) 0.3 x10^3/uL (0.0-0.2); HEMATOCRIT 41.6 % (36.0-47.0); HEMOGLOBIN 14.4 g/dL (12.0-16.0); LYMPHOCYTES # (AUTO) 1.3 X10^3/uL (1.3-2.9); LYMPHOCYTES % (AUTO) 19.5 % (21.0-51.0); MEAN CORPUSCULAR HEMOGLOBIN 29.4 pg (27.0-34.0); MEAN CORPUSCULAR HGB CONC 34.7 g/dL (33.0-35.0); MEAN CORPUSCULAR VOLUME 84.9 fL (80.0-100.0); MONOCYTES # (AUTO) 0.6 x10^3/uL (0.3-0.8); NEUTROPHILS # (AUTO) 4.5 x10^3/uL (2.2-4.8); NEUTROPHILS % (AUTO) 65.4 % (42.0-75.0); PLATELET COUNT 372 X10^3/uL (150.0-450.0); RED CELL DISTRIBUTION WIDTH 12.7 % (11.6-16.5); WHITE BLOOD COUNT 6.9 X10^3/uL (3.6-10.0)
--- NOTE | 2017-03-09 20:50 | RAD ---
PA and lateral Chest Indication: Chest tightness with positive flu test Comparison: 05/18/2010 Findings: The trachea is midline. The cardiac silhouette is unremarkable. The lungs are clear without focal i nfiltrate or effusion. The bony thorax is unremarkable. IMPRESSION: 1. No acute cardiopulmonary abnormality. Reported By:
[2017-03-09 20:59] LABS: ALANINE AMINOTRANSFERASE 36 Units/L (12-78); ALBUMIN 3.2 g/dL (3.4-5.0); ALKALINE PHOSPHATASE 97 Units/L (46-116); ASPARTATE AMINO TRANSFERASE 120 Units/L (15-37); BLOOD UREA NITROGEN 12 mg/dL (7-18); CALCIUM 8.9 mg/dL (8.5-10.1); CARBON DIOXIDE 23.4 mmol/L (21-32); CHLORIDE 100 mmol/L (98-107); COR CA(FOR HYPOALB) 9.5 mg/dL (8.5-10.1); COR NA(FOR HYPERGLY) 138 mmol/L (136-145); CREATININE 0.89 mg/dL (0.55-1.02); SODIUM 134 mmol/L (136-145); TOTAL PROTEIN 7.4 g/dL (6.4-8.2); eGFR BLACK RACES > 60 (>60); eGFR NON BLACK RACES > 60 (>60)
[2017-03-09 21:04] LABS: BILIRUBIN,URINE NEGATIVE (NEGATIVE); BLOOD/HEMOGLOBIN,URINE 1+ (NEGATIVE); GLUCOSE, URINE 4+ (NEGATIVE); KETONES,URINE 1+ (NEGATIVE); LEUKOCYTE ESTERASE ,URINE NEGATIVE (NEGATIVE); NITRITES,URINE NEGATIVE (NEGATIVE); PROTEIN,URINE 2+ (NEGATIVE); UROBILINOGEN,URINE NORMAL (NORMAL)
[2017-03-09 21:10] LABS: APPEARANCE,URINE CLEAR (CLEAR); COLOR,URINE YELLOW (YELLOW)
[2017-03-09 21:14] LABS: BACTERIA,URINE TRACE /HPF (NEGATIVE); RBC,URINE RARE /HPF (NEGATIVE); SQUAMOUS EPITHELIAL CELL,UR FEW /HPF (NEGATIVE)
[2017-03-09 21:15] LABS: AMORPHOUS SEDIMENT,UR TRACE /HPF (NEGATIVE)
[2017-03-09 21:30] LABS: ABG BASE EXCESS -2.2 mmol/L (-2.0-2.0); ABG HCO3 21.1 mmol/L (22-26)
[2017-03-09 21:31] LABS: ABG ALLEN TEST POS; FRACTIONATED INSPIRED OXYGEN 21
[2017-03-09] MEDS ORDERED: TYLENOL #3 TAB (W/CODEINE) PO ONE ×2 (21:46→21:54)
== END 2017-03-09 21:56 | disposition home or self-care (01) ==
LOC: ER 18:55
DX: J11.1 Influenza due to unidentified influenza virus with other respiratory manifestations (principal)
CPT/HCPCS: 36415; 36600; 71046; 80053; 81001; 82803; 85025; 87502; 99282; 99283